=== PATIENT | female | born 1960 | race Caucasian/White ===

== ENCOUNTER 2024-05-15 20:00 | Inpatient (IN) | payer OTHER ==
[~2024-05-15] VITALS: Ht 177.8 cm; Wt 58.4 kg
[2024-05-15 21:29] LABS: BASOPHILS % (AUTO) 0.6 % (0.0-2.0); EOSINOPHILS % (AUTO) 3.1 % (1.0-6.0); HEMATOCRIT 31.9 % (36-46); HEMOGLOBIN 10.6 g/dL (12.0-16.0); LYMPHOCYTES # (AUTO) 1.1 K/uL (1.0-4.8); LYMPHOCYTES % (AUTO) 34.5 % (22.0-44.0); MEAN CORPUSCULAR HEMOGLOBIN 29.2 pg (26.0-34.0); MEAN CORPUSCULAR HGB CONC 33.2 G/dL (31.0-37.0); MEAN CORPUSCULAR VOLUME 88 fL (80-100); MONOCYTES # (AUTO) 0.2 K/uL (0.1-1.0); MONOCYTES % (AUTO) 7.5 % (2.0-9.0); NEUTROPHILS # (AUTO) 1.7 K/uL (1.8-7.7); NEUTROPHILS % (AUTO) 54.3 % (40.0-70.0); RED BLOOD CELL COUNT(AUTO) 3.62 MIL/uL (4.00-5.20); RED CELL DISTRIBUTION WIDTH 16.3 % (11.5-14.5); WHITE BLOOD COUNT (AUTO) 3.1 K/uL (4.5-11.0)
[2024-05-15 21:31] LABS: PLATELET COUNT (AUTO) 83 K/uL (150-450)
[2024-05-15 21:36] LABS: ANION GAP 10 mmol/L (8-16); CALCIUM, TOTAL 8.5 mg/dL (8.8-10.5); CARBON DIOXIDE 26 mmol/L (22-29); CHLORIDE 109 mmol/L (98-107); CREATININE 0.57 mg/dL (0.60-1.30); GLOMERULAR FILTR. RATE CALC > 60 mL/min (>60); GLUCOSE,RANDOM 268 mg/dL (70-110); POTASSIUM 3.6 mmol/L (3.5-5.1); SODIUM SERUM 145 mmol/L (136-145); UREA NITROGEN, BLOOD 10 mg/dL (7-18)
[2024-05-15 21:40] LABS: SALICYLATE 0.9 mg/dL (2.8-20.0)
[2024-05-15 21:42] LABS: ACETAMINOPHEN < 2 mcg/mL (10-30)
[2024-05-15 22:01] LABS: PLATELET MORPHOLOGY COMMENT LARGE PLTS PRESENT; RBC MORPHOLOGY COMMENT NORMAL RBC MORPH
[2024-05-15 22:04] LABS: PHOSPHORUS 3.5 mg/dL (2.5-4.9)
[2024-05-15 22:11] LABS: ALCOHOL, BLOOD (SERUM) 21 mg/dL (0-10)
[2024-05-15] MEDS: SODIUM CHLORIDE 0.9% 1,000 ML IV ONE (22:52)
[2024-05-15] MEDS: MAGNESIUM SULFATE 2 GM/WATER 50 ML IV ONE (22:53)
[2024-05-16 01:35] LABS: ANION GAP 9 mmol/L (8-16); CALCIUM, TOTAL 8.2 mg/dL (8.8-10.5); CARBON DIOXIDE 25 mmol/L (22-29); CHLORIDE 112 mmol/L (98-107); CREATININE 0.66 mg/dL (0.60-1.30); GLOMERULAR FILTR. RATE CALC > 60 mL/min (>60); GLUCOSE,RANDOM 107 mg/dL (70-110); POTASSIUM 3.5 mmol/L (3.5-5.1); SODIUM SERUM 146 mmol/L (136-145); UREA NITROGEN, BLOOD 14 mg/dL (7-18)
[2024-05-16] MEDS ORDERED: ONDANSETRON HCL 4 MG/2 ML VIAL IVP PRN (06:15)
[2024-05-16] MEDS: HEPARIN SODIUM,PORCINE 5,000 UNITS/ML VIAL SQ SCH (07:33)
[2024-05-16] MEDS ORDERED: HydrALAZINE HCL 20 MG/ML VIAL IVP PRN (08:45)
[2024-05-16] MEDS: FAMOTIDINE 20 MG TABLET PO SCH (10:40)
[2024-05-16] MEDS: AmLODIPine BESYLATE 5 MG TABLET PO SCH (10:40)
[2024-05-16] MEDS: DOCUSATE SODIUM 100 MG CAPSULE PO SCH (10:40)
[2024-05-16] MEDS: MAGNESIUM SULFATE 2 GM/WATER 50 ML IV ONE (11:17)
[2024-05-16] MEDS: POTASSIUM CHLORIDE 20 MEQ ER TABLET PO ONE (11:17)
[2024-05-16 13:32] VITALS: BP 155/70; PULSE 95; RESP 18; TEMP 97.4; O2SAT 97
[2024-05-16 15:29] LABS: ANION GAP 10 mmol/L (8-16); CALCIUM, TOTAL 8.3 mg/dL (8.8-10.5); CARBON DIOXIDE 24 mmol/L (22-29); CHLORIDE 111 mmol/L (98-107); CREATININE 0.66 mg/dL (0.60-1.30); GLOMERULAR FILTR. RATE CALC > 60 mL/min (>60); GLUCOSE,RANDOM 137 mg/dL (70-110); POTASSIUM 4.4 mmol/L (3.5-5.1); SODIUM SERUM 145 mmol/L (136-145); UREA NITROGEN, BLOOD 13 mg/dL (7-18)
[2024-05-16 15:52] VITALS: BP 146/90; PULSE 97; RESP 18; TEMP 97.8; O2SAT 98
[2024-05-16 19:41] VITALS: BP 138/60; PULSE 92; RESP 18; TEMP 101.4; O2SAT 97
[2024-05-16] MEDS: ACETAMINOPHEN 325 MG TABLET PO PRN (21:13)
[2024-05-16 23:06] VITALS: BP 149/64; PULSE 88; RESP 18; TEMP 98.8; O2SAT 95
[2024-05-17 01:22] VITALS: BP 149/66; PULSE 83; RESP 18; TEMP 98.9; O2SAT 98
[2024-05-17] MEDS: SODIUM CHLORIDE 0.9% 1,000 ML IV ONE (02:06)
[2024-05-17 03:35] VITALS: BP 149/72; PULSE 85; RESP 18; TEMP 98.4; O2SAT 99
[2024-05-17 06:52] LABS: COVID AG,FIA SOURCE NASAL SWAB
[2024-05-17 07:02] LABS: BASOPHILS % (AUTO) 0.4 % (0.0-2.0); EOSINOPHILS % (AUTO) 2.3 % (1.0-6.0); HEMATOCRIT 34.5 % (36-46); HEMOGLOBIN 11.6 g/dL (12.0-16.0); LYMPHOCYTES # (AUTO) 0.9 K/uL (1.0-4.8); LYMPHOCYTES % (AUTO) 23.3 % (22.0-44.0); MEAN CORPUSCULAR HEMOGLOBIN 29.6 pg (26.0-34.0); MEAN CORPUSCULAR HGB CONC 33.6 G/dL (31.0-37.0); MEAN CORPUSCULAR VOLUME 88 fL (80-100); MONOCYTES # (AUTO) 0.3 K/uL (0.1-1.0); MONOCYTES % (AUTO) 7.6 % (2.0-9.0); NEUTROPHILS # (AUTO) 2.5 K/uL (1.8-7.7); NEUTROPHILS % (AUTO) 66.4 % (40.0-70.0); PLATELET COUNT (AUTO) 74 K/uL (150-450); RED BLOOD CELL COUNT(AUTO) 3.92 MIL/uL (4.00-5.20); RED CELL DISTRIBUTION WIDTH 16.1 % (11.5-14.5); WHITE BLOOD COUNT (AUTO) 3.8 K/uL (4.5-11.0)
[2024-05-17 07:03] LABS: APPEARANCE,URINE HAZY (CLEAR); BILIRUBIN,URINE NEGATIVE (NEGATIVE); COLOR,URINE YELLOW (YELLOW); GLUCOSE, URINE (UA) 150-200 mg/dL (NEGATIVE); KETONES,URINE NEGATIVE (NEGATIVE); LEUKOCYTE ESTERASE ,URINE LARGE (NEGATIVE); NITRATE,URINE NEGATIVE (NEGATIVE); OCCULT BLOOD,URINE TRACE (NEGATIVE); PH,URINE 5.5 (5.0-8.0); PROTEIN,URINE TRACE mg/dL (NEGATIVE); UROBILINOGEN,URINE <=1.0 mg/dL (<=1.0)
[2024-05-17 07:11] LABS: AMPHET/METH SCREEN,URINE POSITIVE (NEGATIVE); BARBITURATE SCREEN, URINE NEGATIVE (NEGATIVE); BENZODIAZEPINES SCREEN,URINE NEGATIVE (NEGATIVE); CANNABINOID SCREEN,URINE NEGATIVE (NEGATIVE); COCAINE SCREEN,URINE NEGATIVE (NEGATIVE); METHADONE SCREEN, URINE NEGATIVE (NEGATIVE); OPIATE SCREEN,URINE NEGATIVE (NEGATIVE); PHENCYCLIDINE SCREEN,URINE NEGATIVE (NEGATIVE)
[2024-05-17 07:12] LABS: ALCOHOL, URINE DRUG SCREEN NEGATIVE (NEGATIVE)
[2024-05-17 07:13] LABS: RBC,URINE 0-2 /HPF (0-2)
[2024-05-17 07:14] LABS: BACTERIA,URINE Many /HPF (None Seen); SQUAMOUS EPITHELIAL CELL,UR Few /LPF (None Seen); WBC,URINE 51-100 /HPF (0-5)
[2024-05-17 07:18] LABS: PH,URINE DRUG SCREEN 5.5 (5.0-8.0)
[2024-05-17 07:22] LABS: ANION GAP 9 mmol/L (8-16); CARBON DIOXIDE 24 mmol/L (22-29); CHLORIDE 110 mmol/L (98-107); CREATININE 0.57 mg/dL (0.60-1.30); GLOMERULAR FILTR. RATE CALC > 60 mL/min (>60); GLUCOSE,RANDOM 169 mg/dL (70-110); POTASSIUM 3.4 mmol/L (3.5-5.1); SODIUM SERUM 143 mmol/L (136-145); UREA NITROGEN, BLOOD 10 mg/dL (7-18)
[2024-05-17 07:40] VITALS: BP 157/77; PULSE 88; RESP 19; TEMP 98; O2SAT 97
[2024-05-17 07:44] LABS: PLATELET MORPHOLOGY COMMENT LARGE PLTS PRESENT; RBC MORPHOLOGY COMMENT NORMAL RBC MORPH
[2024-05-17 08:02] LABS: SARS-COV2 (COVID) ANTIGEN,FIA Negative (Negative)
[2024-05-17 11:51] VITALS: BP 155/68; PULSE 83; RESP 19; TEMP 98.1; O2SAT 98
[2024-05-17] MEDS ORDERED: POTASSIUM CHL 10 MEQ/WATER 50 ML IV ONE (14:00)
[2024-05-17] MEDS ORDERED: SODIUM CHLORIDE 0.9% 250 ML IV ONE (14:50)
[2024-05-17] MEDS: POTASSIUM CHLORIDE 20 MEQ ER TABLET PO ONE (14:55)
[2024-05-17] MEDS: CefTRIAXone 1 GM/DEXTROSE 50 ML IV SCH (15:27)
[2024-05-17 15:33] VITALS: BP 144/90; PULSE 83; RESP 20; TEMP 97.9; O2SAT 100
[2024-05-17 19:21] VITALS: BP 146/70; PULSE 88; RESP 18; TEMP 97.8; O2SAT 100
[2024-05-18] VITALS: BP 135/67; PULSE 85; RESP 18; TEMP 98; O2SAT 99
[2024-05-18 05:29] VITALS: BP 150/83; PULSE 85; RESP 18; TEMP 98.3; O2SAT 98
[2024-05-18 08:05] VITALS: BP 167/80; PULSE 85; RESP 18; TEMP 98.6; O2SAT 97
[2024-05-18 12:03] VITALS: BP 151/83; PULSE 89; RESP 18; TEMP 98.6; O2SAT 100
[2024-05-18 16:28] VITALS: BP 138/74; PULSE 83; RESP 18; TEMP 98.4; O2SAT 100
[2024-05-18 19:30] VITALS: BP 139/75; PULSE 86; RESP 17; TEMP 98.2; O2SAT 100
[2024-05-19 04:53] VITALS: BP 185/86; PULSE 96; RESP 18; TEMP 98.3; O2SAT 98
[2024-05-19] MEDS: AmLODIPine BESYLATE 5 MG TABLET PO ONE (05:08)
[2024-05-19] MEDS: MORPHINE SULFATE 2 MG/ML SYRINGE IVP ONE (05:09)
[2024-05-19 06:57] VITALS: BP 184/80; RESP 18; O2SAT 98
[2024-05-19] MEDS: LABETALOL HCL 100 MG TABLET PO ONE (07:15)
[2024-05-19 08:10] VITALS: BP 135/64; PULSE 86; RESP 18; TEMP 97.8; O2SAT 97
[2024-05-19] MEDS ORDERED: SODIUM CHLORIDE 0.9% 250 ML IV ONE (14:35)
[2024-05-19] MEDS: LIDOCAINE 5% TRANSDERMAL PATCH TD SCH (14:36)
[2024-05-19 16:17] VITALS: BP 142/85; PULSE 85; RESP 18; TEMP 97.7; O2SAT 98
[2024-05-19] MEDS ORDERED: INFLUENZA VIRUS VACCINE TVS (6MO+) 2024-25/PF 45 MCG/0.5 ML SYRINGE IM. ONE (17:00)
[2024-05-19 20:00] VITALS: BP 146/72; PULSE 85; RESP 18; TEMP 98.1; O2SAT 97
[2024-05-19] MEDS: -LIDODERM PATCH NOTE- MISC SCH (22:05)
[2024-05-20 05:00] VITALS: BP 124/71; PULSE 92; RESP 18; TEMP 98.4; O2SAT 98
[2024-05-20 07:26] LABS: BASOPHILS % (AUTO) 0.7 % (0.0-2.0); EOSINOPHILS % (AUTO) 3.6 % (1.0-6.0); HEMATOCRIT 42.5 % (36-46); HEMOGLOBIN 14.1 g/dL (12.0-16.0); LYMPHOCYTES # (AUTO) 1.1 K/uL (1.0-4.8); LYMPHOCYTES % (AUTO) 22.7 % (22.0-44.0); MEAN CORPUSCULAR HEMOGLOBIN 28.7 pg (26.0-34.0); MEAN CORPUSCULAR HGB CONC 33.2 G/dL (31.0-37.0); MEAN CORPUSCULAR VOLUME 87 fL (80-100); MONOCYTES # (AUTO) 0.4 K/uL (0.1-1.0); MONOCYTES % (AUTO) 7.7 % (2.0-9.0); NEUTROPHILS # (AUTO) 3.2 K/uL (1.8-7.7); NEUTROPHILS % (AUTO) 65.3 % (40.0-70.0); PLATELET COUNT (AUTO) 111 K/uL (150-450); RED BLOOD CELL COUNT(AUTO) 4.91 MIL/uL (4.00-5.20); RED CELL DISTRIBUTION WIDTH 15.8 % (11.5-14.5); WHITE BLOOD COUNT (AUTO) 4.8 K/uL (4.5-11.0)
[2024-05-20 07:56] LABS: ANION GAP 12 mmol/L (8-16); CALCIUM, TOTAL 9.5 mg/dL (8.8-10.5); CARBON DIOXIDE 23 mmol/L (22-29); CHLORIDE 97 mmol/L (98-107); CREATININE 0.79 mg/dL (0.60-1.30); GLOMERULAR FILTR. RATE CALC > 60 mL/min (>60); POTASSIUM 4.7 mmol/L (3.5-5.1); SODIUM SERUM 132 mmol/L (136-145); UREA NITROGEN, BLOOD 24 mg/dL (7-18)
[2024-05-20 08:01] LABS: GLUCOSE,RANDOM 524 mg/dL (70-110)
[2024-05-20] MEDS ORDERED: SODIUM CHLORIDE 0.9% 1,000 ML ONE (08:21)
[2024-05-20] MEDS ORDERED: DEXTROSE 50%-WATER 25 GM/50 ML SYRINGE IVP PRN (08:30)
[2024-05-20] MEDS: AmLODIPine BESYLATE 5 MG TABLET PO SCH (08:35)
[2024-05-20] MEDS: INSULIN GLARGINE,HUM.REC.ANLOG 100 UNITS/ML SQ SCH ×2 (08:41→20:52)
[2024-05-20] MEDS: INSULIN LISPRO 100 UNITS/ML SQ PRN (08:42)
[2024-05-20 08:44] VITALS: BP 135/106; PULSE 93; RESP 18; TEMP 98; O2SAT 96
[2024-05-20 09:35] LABS: GLUCOMETER DEV NAME(LOC) 5S.1D; GLUCOSE,POINT OF CARE > 600 MG/DL (70-110)
[2024-05-20] MEDS: SODIUM CHLORIDE 0.9% 1,000 ML IV ONE (09:50)
[2024-05-20 12:00] LABS: GLUCOMETER DEV NAME(LOC) 5S.1D; GLUCOSE,POINT OF CARE 493 MG/DL (70-110)
[2024-05-20] MEDS: INSULIN GLARGINE,HUM.REC.ANLOG 100 UNITS/ML SQ ONE (12:12)
[2024-05-20 15:38] VITALS: BP 147/78; PULSE 92; RESP 18; TEMP 99.5; O2SAT 97
[2024-05-20 20:30] VITALS: BP 152/72; PULSE 86; RESP 20; TEMP 99.5; O2SAT 98
[2024-05-20 20:50] LABS: GLUCOMETER DEV NAME(LOC) 5S.1D; GLUCOSE,POINT OF CARE 316 MG/DL (70-110)
[2024-05-20 21:15] VITALS: BP 137/73; PULSE 83; RESP 18; TEMP 99.5; O2SAT 99
[2024-05-20 23:00] VITALS: TEMP 97.6
[2024-05-21 03:36] LABS: GLUCOMETER DEV NAME(LOC) 6N.1B; GLUCOSE,POINT OF CARE 360 MG/DL (70-110)
[2024-05-21 05:56] VITALS: BP 141/72; PULSE 85; RESP 20; TEMP 99.2; O2SAT 97
[2024-05-21 08:47] VITALS: BP 118/65; PULSE 90; RESP 20; TEMP 97.7; O2SAT 99
[2024-05-21 15:25] LABS: GLUCOMETER DEV NAME(LOC) 6N.1B; GLUCOSE,POINT OF CARE 459 MG/DL (70-110)
[2024-05-21 15:25] LABS: GLUCOMETER DEV NAME(LOC) 6N.1B; GLUCOSE,POINT OF CARE 324 MG/DL (70-110)
[2024-05-21 18:01] LABS: GLUCOMETER DEV NAME(LOC) 5S.1D; GLUCOSE,POINT OF CARE 229 MG/DL (70-110)
[2024-05-21 18:15] LABS: GLUCOMETER DEV NAME(LOC) 6N.1B; GLUCOSE,POINT OF CARE 239 MG/DL (70-110)
[2024-05-21 19:55] VITALS: BP 148/65; PULSE 86; RESP 18; TEMP 99.2; O2SAT 100
[2024-05-21] MEDS: INSULIN GLARGINE,HUM.REC.ANLOG 100 UNITS/ML SQ SCH (20:41)
[2024-05-21 22:56] LABS: GLUCOMETER DEV NAME(LOC) 6N.1B; GLUCOSE,POINT OF CARE 307 MG/DL (70-110)
[2024-05-22 04:55] VITALS: BP 141/78; PULSE 91; RESP 18; TEMP 99.5; O2SAT 98
[2024-05-22 08:03] VITALS: BP 134/65; PULSE 86; RESP 18; TEMP 98.2; O2SAT 100
[2024-05-22 08:50] LABS: GLUCOMETER DEV NAME(LOC) 6N.1B; GLUCOSE,POINT OF CARE 265 MG/DL (70-110)
[2024-05-22 08:50] LABS: GLUCOMETER DEV NAME(LOC) 6N.1B; GLUCOSE,POINT OF CARE 297 MG/DL (70-110)
[2024-05-22 11:12] LABS: COVID AG,FIA SOURCE NASAL SWAB
[2024-05-22 13:05] LABS: SARS-COV2 (COVID) ANTIGEN,FIA Negative (Negative)
[2024-05-22] MEDS ORDERED: LIDO700A15 TP (16:26)
[2024-05-22] MEDS ORDERED: FAMO20 PO (16:27)
[2024-05-22] MEDS ORDERED: HEPA500018 SQ (16:27)
[2024-05-22] MEDS ORDERED: AMLO-257 PO (16:27)
[2024-05-22] MEDS ORDERED: DOCU-385 PO (16:27)
[2024-05-22] MEDS ORDERED: INSLAN SQ (16:28)
[2024-05-22] MEDS ORDERED: ACET-2247 PO (16:28)
[2024-05-22] MEDS ORDERED: INSU100V SQ (16:33)
[2024-05-22] MEDS ORDERED: INSULIN GLARGINE,HUM.REC.ANLOG 100 UNITS/ML SQ SCH (21:00)
[2024-05-23 02:56] LABS: GLUCOMETER DEV NAME(LOC) 4E.2; GLUCOSE,POINT OF CARE 276 MG/DL (70-110)
[2024-05-23 09:45] LABS: GLUCOMETER DEV NAME(LOC) 5S.1D; GLUCOSE,POINT OF CARE 297 MG/DL (70-110)
== END 2024-05-22 16:00 | DRG 817 ==
LOC: EMS 20:09 → UNDOADMIN 05-16 06:15 → EDH 05-16 06:15 → 5N 05-16 13:10 → 4E 05-18 15:15
PROVIDERS: ADMIT Internal Medicine; ATTEND Internal Medicine
DX: T42.6X2A Poisoning by other antiepileptic and sedative-hypnotic drugs, intentional self-harm, initial encounter (principal); G92.9 Unspecified toxic encephalopathy; D61.818 Other pancytopenia; R45.851 Suicidal ideations; I10 Essential (primary) hypertension; E87.6 Hypokalemia; Z20.822 Contact with and (suspected) exposure to COVID-19; N39.0 Urinary tract infection, site not specified; F33.2 Major depressive disorder, recurrent severe without psychotic features; F15.10 Other stimulant abuse, uncomplicated; Z59.00 Homelessness unspecified; F41.9 Anxiety disorder, unspecified; F10.10 Alcohol abuse, uncomplicated; E11.65 Type 2 diabetes mellitus with hyperglycemia; Y92.89 Other specified places as the place of occurrence of the external cause
CPT/HCPCS: 71045; 80048; 80307; 81001; 82962; 83735; 84100; 85025; 87040; 87086; 93005; 96365; 99285; G0378; G0480; G0481; J0696; J1644; J1815; J2270; J3475; J7030; J7050; 36415-L1; 36415-TC

== ENCOUNTER 2024-05-22 09:55 | Inpatient (IN) | payer MEDICAID ==
[~2024-05-22] VITALS: Ht 156.2 cm; Wt 53.6 kg
[2024-05-22] MEDS ORDERED: LORazepam 2 MG TABLET PO PRN (10:30)
[2024-05-22] MEDS ORDERED: QUEtiapine FUMARATE 100 MG TABLET PO PRN (10:30)
[2024-05-22] MEDS ORDERED: LIDO700A15 TP (16:26)
[2024-05-22] MEDS ORDERED: FAMO20 PO (16:27)
[2024-05-22] MEDS ORDERED: AMLO-257 PO (16:27)
[2024-05-22] MEDS ORDERED: HEPA500018 SQ (16:27)
[2024-05-22] MEDS ORDERED: DOCU-385 PO (16:27)
[2024-05-22] MEDS ORDERED: ACET-2247 PO (16:28)
[2024-05-22] MEDS ORDERED: INSLAN SQ (16:28)
[2024-05-22] MEDS ORDERED: INSU100V SQ (16:33)
[2024-05-22 17:48] VITALS: BP 154/84; PULSE 94; RESP 18; TEMP 98.1; O2SAT 100
[2024-05-22] MEDS ORDERED: DEXTROSE 50%-WATER 25 GM/50 ML SYRINGE IVP PRN (19:00)
[2024-05-22] MEDS ORDERED: ACETAMINOPHEN 650 MG/20.3 ML SOLUTION UDCUP PO PRN (19:00)
[2024-05-22] MEDS ORDERED: ACETAMINOPHEN 325 MG TABLET PO PRN (19:15)
[2024-05-22] MEDS: FAMOTIDINE 20 MG TABLET PO SCH (20:16)
[2024-05-22] MEDS: SERTRALINE HCL 50 MG TABLET PO SCH (20:16)
[2024-05-22] MEDS: DOCUSATE SODIUM 100 MG CAPSULE PO SCH (20:16)
[2024-05-22] MEDS: INSULIN GLARGINE,HUM.REC.ANLOG 100 UNITS/ML SQ SCH (20:19)
[2024-05-22] MEDS: INSULIN LISPRO 100 UNITS/ML SQ PRN (20:20)
[2024-05-22 20:30] LABS: GLUCOMETER DEV NAME(LOC) 3EX.2; GLUCOSE,POINT OF CARE 395 MG/DL (70-110)
[2024-05-22 21:49] VITALS: BP 155/91; PULSE 93; RESP 18; O2SAT 100
[2024-05-22] MEDS: ZOLPIDEM TARTRATE 10 MG TABLET PO PRN (23:06)
[2024-05-23 06:41] LABS: GLUCOMETER DEV NAME(LOC) 3EX.2; GLUCOSE,POINT OF CARE 190 MG/DL (70-110)
[2024-05-23 07:30] LABS: CHOL/HDL RATIO 2.8 (3.9-5.7)
[2024-05-23] MEDS: AmLODIPine BESYLATE 5 MG TABLET PO SCH (08:16)
[2024-05-23 08:27] VITALS: BP 153/87; PULSE 92; RESP 17; O2SAT 98
[2024-05-23 08:31] LABS: GLUCOMETER DEV NAME(LOC) 3EX.2; GLUCOSE,POINT OF CARE 128 MG/DL (70-110)
[2024-05-23] MEDS: LIDOCAINE 5% TRANSDERMAL PATCH TD SCH (09:19)
[2024-05-23 09:36] LABS: GLUCOMETER DEV NAME(LOC) 3EX.2; GLUCOSE,POINT OF CARE 145 MG/DL (70-110)
[2024-05-23 11:41] LABS: GLUCOMETER DEV NAME(LOC) 3EX.2; GLUCOSE,POINT OF CARE 294 MG/DL (70-110)
[2024-05-23] MEDS ORDERED: MAG HYDROX/ALUMINUM HYD/SIMETH ES 30 ML SUSPENSION UDCUP PO PRN (16:15)
[2024-05-23] MEDS ORDERED: GuaiFENesin/D-METHORPHAN [SUGAR-FREE] 200-20MG/10 ML SYRUP UDCUP PO PRN (16:15)
[2024-05-23] MEDS ORDERED: ALBUTEROL SULFATE HFA 90 MCG/PUFF 8 GM INHALER IH PRN (16:15)
[2024-05-23] MEDS ORDERED: ONDANSETRON 4 MG TABLET PO PRN (16:15)
[2024-05-23] MEDS ORDERED: CloNIDine HCL 0.1 MG TABLET PO PRN (16:15)
[2024-05-23] MEDS ORDERED: DOCUSATE SODIUM 100 MG CAPSULE PO PRN (16:15)
[2024-05-23] MEDS ORDERED: PETROLATUM,WHITE 28 GM JELLY TP PRN (16:15)
[2024-05-23] MEDS ORDERED: MAGNESIUM HYDROXIDE SUSPENSION 30 ML UDCUP PO PRN (16:15)
[2024-05-23] MEDS ORDERED: LOPERAMIDE HCL 2 MG CAPSULE PO PRN (16:15)
[2024-05-23 16:40] LABS: GLUCOMETER DEV NAME(LOC) 3EX.2; GLUCOSE,POINT OF CARE 399 MG/DL (70-110)
[2024-05-23] MEDS: -LIDODERM PATCH NOTE- MISC SCH (20:41)
[2024-05-23 21:06] VITALS: BP 154/63; PULSE 92; RESP 16; TEMP 98.5; O2SAT 97
[2024-05-24 06:41] LABS: GLUCOMETER DEV NAME(LOC) 3EX.2; GLUCOSE,POINT OF CARE 363 MG/DL (70-110)
[2024-05-24 07:47] LABS: HEMOGLOBIN A1C 7.9 % (3.8-5.6)
[2024-05-24 07:56] LABS: CHOL/HDL RATIO 2.6 (3.9-5.7); THYROID STIMULATING HORMONE 1.63 uIU/mL (0.36-3.74)
[2024-05-24 08:45] LABS: GLUCOMETER DEV NAME(LOC) 3EX.2; GLUCOSE,POINT OF CARE 402 MG/DL (70-110)
[2024-05-24 09:46] LABS: GLUCOMETER DEV NAME(LOC) 3EX.2; GLUCOSE,POINT OF CARE 299 MG/DL (70-110)
[2024-05-24 10:35] VITALS: BP 154/69; PULSE 89; RESP 18; TEMP 98.6; O2SAT 98
[2024-05-24 11:36] LABS: GLUCOMETER DEV NAME(LOC) 3EX.2; GLUCOSE,POINT OF CARE 397 MG/DL (70-110)
[2024-05-24] MEDS: IBUPROFEN 400 MG TABLET PO PRN (13:53)
[2024-05-24 13:55] VITALS: BP 145/78; PULSE 78; RESP 18
[2024-05-24 14:40] LABS: GLUCOMETER DEV NAME(LOC) 3EX.2; GLUCOSE,POINT OF CARE 190 MG/DL (70-110)
[2024-05-24 16:41] LABS: GLUCOMETER DEV NAME(LOC) 3EX.2; GLUCOSE,POINT OF CARE 430 MG/DL (70-110)
[2024-05-24 17:40] LABS: GLUCOMETER DEV NAME(LOC) 3EX.2; GLUCOSE,POINT OF CARE 498 MG/DL (70-110)
[2024-05-24 20:00] LABS: GLUCOMETER DEV NAME(LOC) 3EX.2; GLUCOSE,POINT OF CARE 364 MG/DL (70-110)
[2024-05-24 20:37] VITALS: BP 148/69; PULSE 94; RESP 18; TEMP 98
[2024-05-25 06:55] LABS: GLUCOMETER DEV NAME(LOC) 3E.C; GLUCOSE,POINT OF CARE 210 MG/DL (70-110)
[2024-05-25 08:25] LABS: GLUCOMETER DEV NAME(LOC) 3E.C; GLUCOSE,POINT OF CARE 240 MG/DL (70-110)
[2024-05-25 09:23] VITALS: BP 135/70; PULSE 90; RESP 18; TEMP 97.6
[2024-05-25 11:35] LABS: GLUCOMETER DEV NAME(LOC) 3E.C; GLUCOSE,POINT OF CARE 389 MG/DL (70-110)
[2024-05-25 12:52] VITALS: BP 130/68; PULSE 78; RESP 18
[2024-05-25] MEDS: ACETAMINOPHEN 325 MG TABLET PO PRN (15:44)
[2024-05-25 17:00] LABS: GLUCOMETER DEV NAME(LOC) 3E.C; GLUCOSE,POINT OF CARE 492 MG/DL (70-110)
[2024-05-25] MEDS: INSULIN LISPRO 100 UNITS/ML SQ ONE (17:40)
[2024-05-25 20:36] LABS: GLUCOMETER DEV NAME(LOC) 3E.C; GLUCOSE,POINT OF CARE 354 MG/DL (70-110)
[2024-05-25 20:38] VITALS: RESP 18
[2024-05-26 06:25] LABS: GLUCOMETER DEV NAME(LOC) 3E.C; GLUCOSE,POINT OF CARE 292 MG/DL (70-110)
[2024-05-26 08:16] LABS: GLUCOMETER DEV NAME(LOC) 3E.C; GLUCOSE,POINT OF CARE 247 MG/DL (70-110)
[2024-05-26] MEDS: INSULIN GLARGINE,HUM.REC.ANLOG 100 UNITS/ML SQ SCH (08:45)
[2024-05-26] MEDS: NICOTINE 14 MG/24 HOUR PATCH TD PRN (09:59)
[2024-05-26 10:07] VITALS: BP 137/66; PULSE 78; RESP 18; TEMP 97.5
[2024-05-26 11:30] LABS: GLUCOMETER DEV NAME(LOC) 3E.C; GLUCOSE,POINT OF CARE 315 MG/DL (70-110)
[2024-05-26 16:41] LABS: GLUCOMETER DEV NAME(LOC) 3E.C; GLUCOSE,POINT OF CARE 354 MG/DL (70-110)
[2024-05-26 20:30] LABS: GLUCOMETER DEV NAME(LOC) 3E.C; GLUCOSE,POINT OF CARE 285 MG/DL (70-110)
[2024-05-26 20:47] VITALS: BP 146/82; PULSE 92; RESP 18; TEMP 97.8
[2024-05-26 21:47] VITALS: RESP 18
[2024-05-27 06:05] LABS: GLUCOMETER DEV NAME(LOC) 3E.C; GLUCOSE,POINT OF CARE 148 MG/DL (70-110)
[2024-05-27 09:26] LABS: GLUCOMETER DEV NAME(LOC) 3E.C; GLUCOSE,POINT OF CARE 255 MG/DL (70-110)
[2024-05-27 12:10] LABS: GLUCOMETER DEV NAME(LOC) 3E.C; GLUCOSE,POINT OF CARE 376 MG/DL (70-110)
[2024-05-27 15:55] VITALS: BP 153/64; PULSE 95; RESP 18; TEMP 97.6
[2024-05-27 16:55] VITALS: BP 148/82; PULSE 87; RESP 19; TEMP 97.5
[2024-05-27 17:31] LABS: GLUCOMETER DEV NAME(LOC) 3E.C; GLUCOSE,POINT OF CARE 343 MG/DL (70-110)
[2024-05-27 20:16] LABS: GLUCOMETER DEV NAME(LOC) 3EX.2; GLUCOSE,POINT OF CARE 345 MG/DL (70-110)
[2024-05-27 20:52] VITALS: BP 150/74; PULSE 94; RESP 18; TEMP 98.8
[2024-05-28 05:51] LABS: GLUCOMETER DEV NAME(LOC) 3E.C; GLUCOSE,POINT OF CARE 265 MG/DL (70-110)
[2024-05-28 08:00] VITALS: BP 152/67; PULSE 92; RESP 17; TEMP 97.6; O2SAT 99
[2024-05-28 13:31] LABS: GLUCOMETER DEV NAME(LOC) 3E.C; GLUCOSE,POINT OF CARE 346 MG/DL (70-110)
[2024-05-28 17:46] LABS: GLUCOMETER DEV NAME(LOC) 3E.C; GLUCOSE,POINT OF CARE 438 MG/DL (70-110)
[2024-05-28 21:00] LABS: GLUCOMETER DEV NAME(LOC) 3E.C; GLUCOSE,POINT OF CARE 298 MG/DL (70-110)
[2024-05-29 06:06] LABS: GLUCOMETER DEV NAME(LOC) 3E.C; GLUCOSE,POINT OF CARE 127 MG/DL (70-110)
[2024-05-29 08:00] VITALS: BP 148/66; PULSE 80; RESP 17; TEMP 97.3; O2SAT 100
[2024-05-29 11:40] LABS: GLUCOMETER DEV NAME(LOC) 3E.C; GLUCOSE,POINT OF CARE 270 MG/DL (70-110)
[2024-05-29] MEDS ORDERED: INSLAN SQ (15:29)
[2024-05-29] MEDS ORDERED: LIDO700A30 TD (15:29)
[2024-05-29] MEDS ORDERED: FAMO20 PO (15:29)
[2024-05-29] MEDS ORDERED: SERT-439 PO (15:29)
[2024-05-29] MEDS ORDERED: AMLO-257 PO (15:29)
== END 2024-05-29 14:30 | disposition home or self-care (01) | DRG 817 ==
LOC: 3EI 18:56
PROVIDERS: ADMIT Psychiatry & Neurology Psychiatry; ATTEND Psychiatry & Neurology Psychiatry
PROC: GZHZZZZ Group Psychotherapy (ICD-10-PCS; principal; 2024-05-22)
PROC: GZ52ZZZ Individual Psychotherapy, Cognitive (ICD-10-PCS; 2024-05-22)
DX: T43.212A Poisoning by selective serotonin and norepinephrine reuptake inhibitors, intentional self-harm, initial encounter (principal); R45.851 Suicidal ideations; F22 Delusional disorders; F33.2 Major depressive disorder, recurrent severe without psychotic features; E11.9 Type 2 diabetes mellitus without complications; F10.10 Alcohol abuse, uncomplicated; F15.10 Other stimulant abuse, uncomplicated; I10 Essential (primary) hypertension; G47.00 Insomnia, unspecified; G89.29 Other chronic pain; Z79.4 Long term (current) use of insulin; Z59.00 Homelessness unspecified; Z79.899 Other long term (current) drug therapy; Z88.0 Allergy status to penicillin; Y92.89 Other specified places as the place of occurrence of the external cause; Y90.1 Blood alcohol level of 20-39 mg/100 ml
CPT/HCPCS: 80061; 82962; 83036; 84443; 87081; J1815